=== PATIENT | female | born 1945 | race Caucasian/White ===

== ENCOUNTER 2025-03-26 19:17 | Emergency (ER) | payer OTHER ==
[2025-03-26 19:50] LABS: Absolute Lymphocytes (CBC) 2.4 K/uL (0.7-4.9); Hematocrit 41.5 % (36.0-45.0); Hemoglobin 13.9 g/dL (12.0-15.0); MCH 27.7 pg (27.0-35.0); MCHC 33.5 g/dL (32.0-36.0); MCV 82.7 fL (80-100); MPV 9.1 fL (7.6-11.3); Nucleated RBC Absolute Count 0.0 (0-0); Nucleated Red Blood Cells % 0.1 % (0-0); RBC Red Blood Cell Count 5.02 M/uL (3.86-4.86); White Blood Count 7.60 thou/uL (4.3-10.9)
[2025-03-26] MEDS ORDERED: ONDANSETRON 4 MG/2 ML VIAL ONE (20:02)
[2025-03-26] MEDS ORDERED: NA CHLORIDE 0.9% 500 ML ONE (20:02)
[2025-03-26 20:12] LABS: ALT/SGPT 27 U/L (13-56); AST/SGOT 23 U/L (15-37); Albumin 3.6 g/dL (3.4-5.0); Albumin/Globulin Ratio 1.1 (1.1-1.8); Alkaline Phosphatase 58 U/L (45-117); Anion Gap 11.6 mEq/L (5.0-15.0); BUN Blood Urea Nitrogen 23 mg/dL (7-18); Globulin 3.4 g/dL (2.3-3.5); Glucose Level 109 mg/dL (74-106); Lipase 36 U/L (13-75); Magnesium 2.2 mg/dL (1.6-2.4); NT PRO-BNP 144 pg/mL (<450); Potassium 3.6 mEq/L (3.5-5.1); Troponin High Sensitivity 9.7 pg/mL (<58.9)
[2025-03-26 20:13] LABS: Bilirubin Indirect, Calculated 0.4 mg/dL (0.2-0.8)
[2025-03-26] MEDS ORDERED: DICYCLOMINE HCL 10 MG CAP ONE (20:19)
[2025-03-26] MEDS ORDERED: KETOROLAC 30 MG/ML INJ ONE (20:19)
[2025-03-26 20:22] LABS: PT Prothrombin Time 12.6 SECONDS (10-13.0); Protime INR 1.12
[2025-03-26 20:43] LABS: Influenza A Ag Negative; Influenza B Ag Negative; SARS-CoV-2 Antigen Rapid Res Negative (Negative)
--- NOTE | 2025-03-26 22:12 | RAD REPORT ---
EXAMINATION: CT Abdomen Pelvis W Contrast CLINICAL INDICATION: Female, 79 years old. ABD PAIN TECHNIQUE: CT abdomen and pelvis was performed, after the administration of IV contrast, as per [facility] protocol. Axial, sagittal and coronal reconstructions were obtained. One or more of the following dose reduction techniques were used: Automated exposure control, adjustment of the mA and k V according to patient size, and iterative reconstruction. Unless otherwise specified, incidental findings do not require dedicated imaging follow-up. COMPARISON: No prior exam. FINDINGS: LOWER CHEST: The visualized lung bases are clear. LIVER: Normal in size and contour. No focal lesion. BILIARY SYSTEM: No suspicious abnormalities. SPLEEN: Normal size. No focal lesion. PANCREAS: No mass, ductal dilation, or michele-pancreatic fluid. ADRENALS: Normal; no mass. KIDNEYS: Normal size and contour. No hydronephrosis. URINARY BLADDER: Decompressed limiting evaluation. GASTROINTESTINAL TRACT: Moderate sliding hiatal hernia. No evidence of free air, significant intra-ab dominal free fluid, bowel obstruction or abscess. APPENDIX: Normal appendix. LYMPH NODES: No lymphadenopathy. MUSCULOSKELETAL: No acute or suspicious osseous abnormality. ADDITIONAL FINDINGS: None. IMPRESSION: No acute or concerning abnormalities seen in the abdomen or pelvis.
--- NOTE | 2025-03-26 22:22 | ER ---
Nurse's Notes [facility] Name: Sonal Barnes Age: 79 yrs Sex: Female : 1945 Arrival Date: 03/26/2025 Time: 19:17 Bed 5 Private MD: Diagnosis: Acute viral gastroenteritis, acute nausea vomiting Presentation: 03/26 19:35 Chief complaint: Patient states: has been having dizziness, generalized weakness, and af3 vomiting for 2x days, also c/o headache /10 that started today. Coronavirus screen: At this time, the client does not indicate any symptoms associated with coronavirus-19. Ebola Screen: No symptoms or risks identified at this time. Initial Sepsis Screen: Does the patient meet any 2 criteria? No. Patient's initial sepsis screen is negative. Does the patient have a suspected source of infection? No. Patient's initial sepsis screen is negative. Risk Assessment: Do you want to hurt yourself or someone else? Patient reports no desire to harm self or others. Onset of symptoms was March 24, 2025. 19:35 Method Of Arrival: Wheelchair af3 19:35 Acuity: CHRISTINA 3 af3 Triage Assessment: 19:36 General: Appears in no apparent distress. comfortable, well groomed, well developed, af3 Behavior is calm, cooperative, appropriate for age. Pain: Complains of pain in head Pain currently is 5 out of 10 on a pain scale. Neuro: Level of Consciousness is awake, alert, obeys commands, Oriented to person, place, time, situation, Appropriate for age Reports dizziness, headache weakness generalized. Cardiovascular: Patient's skin is warm and dry. Respiratory: Airway is patent Respiratory effort is even, unlabored, Respiratory pattern is regular, symmetrical. GI: Abdomen is flat, Reports vomiting. Derm: Skin is intact, Skin is pink, warm \T\ dry. normal. Musculoskeletal: Circulation, motion, and sensation intact. Range of motion: intact in all extremities. Historical: - Allergies: 19:36 Aspirin; af3 19:36 Cephalexin; af3 - Home Meds: 19:36 Xarelto oral [Active]; af3 - PMHx: 19:36 Parkinson's disease; Atrial fibrillation; af3 - PSHx: 19:36 hysterectomy; af3 - Immunization history:: Adult Immunizations up to date. - Infectious Disease History:: Denies. - Social history:: Smoking status: Patient reports the use of cigarette tobacco products, denies chronic smoking, but will smoke occasionally, Patient uses alcohol, occasionally. - Family history:: not pertinent. Screenin:41 [facility] ED Fall Risk Assessment (Adult) History of falling in the last 3 months, af3 including since admission No falls in past 3 months (0 pts) Confusion or Disorientation No (0 pts) Intoxicated or Sedated No (0 pts) Impaired Gait No (0 pts) Mobility Assist Device Used No (0 pt) Altered Elimination Yes (1 pt) Score/Fall Risk Level 0 - 2 = Low Risk Oriented to surroundings, Maintained a safe environment, Educated pt \T\ family on fall prevention, incl call for assistance when getting out of bed. Abuse screen: Denies threats or abuse. Denies injuries from another. Nutritional screening: No deficits noted. Tuberculosis screening: No symptoms or risk factors identified. Assessment: 19:41 General: see triage assessment . af3 20:48 Reassessment: Patient appears in no apparent distress at this time. Patient and/or af3 family updated on plan of care and expected duration. Pain level reassessed. Patient is alert, oriented x 3, equal unlabored respirations, skin warm/dry/pink. 21:34 Reassessment: Patient appears in no apparent distress at this time. Patient and/or af3 family updated on plan of care and expected duration. Pain level reassessed. Patient is alert, oriented x 3, equal unlabored respirations, skin warm/dry/pink. 22:46 Reassessment: Patient appears in no apparent distress at this time. Patient and/or af3 family updated on plan of care and expected duration. Pain level reassessed. Patient is alert, oriented x 3, equal unlabored respirations, skin warm/dry/pink. discharge pending fluid completion. Vital Signs: 19:35 BP 176 / 82; Pulse 88; Resp 18; Temp 98.2; Pulse Ox 97% on R/A; Weight 52.62 kg; Height af3 5 ft. 0 in. ; Pain 5/10; 20:47 BP 164 / 76; Pulse 80; Resp 16; Pulse Ox 97% on R/A; af3 21:34 BP 158 / 70; Pulse 71; Resp 18; Pulse Ox 99% on R/A; af3 22:11 BP 156 / 72; Pulse 77; Resp 18 S; Pulse Ox 100% on R/A; ha1 22:46 BP 174 / 71; Pulse 72; Resp 18; Pulse Ox 97% on R/A; af3 19:35 Body Mass Index 22.65 (52.62 kg, 152.4 cm) af3 19:35 Pain Scale: Adult af3 Chelsie Coma Score: 03/27 00:03 Eye Response: spontaneous(4). Motor Response: obeys commands(6). Verbal Response: sp4 oriented(5). Total: 15. ED Course: 03/26 19:21 Patient arrived in ED. gm2 19:30 Chaka Denis MD is Attending Physician. sp4 19:35 Kamini Dutton, BRADY is Primary Nurse. af3 19:36 Triage completed. af3 19:36 Arm band placed on. af3 19:41 Patient has correct armband on for positive identification. Placed in gown. Bed in low af3 position. Provided Education on: plan of care. 19:41 No provider procedures requiring assistance completed. af3 19:55 Basic Metabolic Panel Sent. ha1 19:55 LFT's Sent. ha1 19:56 Magnesium Sent. ha1 19:56 NT PRO-BNP Sent. ha1 19:56 PT-INR Sent. ha1 19:56 Troponin HS Sent. ha1 19:56 Inserted saline lock: 22 gauge in right antecubital area, using aseptic technique. ha1 Blood collected. Flushed with 10 mL NS. 20:34 CT Abd/Pelvis - IV Contrast Only In Process Unspecified. EDMS 22:21 Fernanda Kingston DO is Referral Physician. sp4 23:04 IV discontinued, intact, bleeding controlled, No redness/swelling at site. Pressure af3 dressing applied. Administered Medications: 20:10 Drug: NS 0.9% IV 500 ml 500 ml IV at 1 bolus once; to be given as a bolus over 30 af3 minutes Volume: 500 ml; Route: IV; Rate: 1 bolus; Site: right antecubital; 21:56 Follow up: Response: No adverse reaction; IV Status: Completed infusion; IV Intake: af3 500ml 20:10 Drug: Ondansetron IVP 8 mg IVP once; over 2 minutes Route: IVP; Site: right antecubital;af3 20:43 Follow up: Response: No adverse reaction af3 20:43 Drug: Dicyclomine PO 20 mg PO once Route: PO; af3 21:56 Follow up: Response: No adverse reaction af3 20:43 Drug: Ketorolac IVP 15 mg IVP once Route: IVP; Site: right antecubital; af3 21:56 Follow up: Response: No adverse reaction af3 Medication: 19:41 VIS not applicable for this client. af3 Intake: 21:56 IV: 500ml; Total: 500ml. af3 Outcome: 22:22 Discharge ordered by . sp4 23:03 Discharged to home via wheelchair, af3 23:03 Condition: stable 23:03 Discharge instructions given to patient, Instructed on discharge instructions, follow up and referral plans. medication usage, Demonstrated understanding of instructions, follow-up care, medications, Prescriptions given X 2, 23:04 Patient left the ED. af3 Signatures: Dispatcher [employer] EDMS Mikala Koch RN RN ha1 Chaka Denis MD MD sp4 Mitchell, Ginger 2 Kamini Dutton RN RN af3 Corrections: (The following items were deleted from the chart) 20:47 19:36 Neuro: Level of Consciousness is awake, alert, obeys commands, Oriented to af3 person, place, time, situation, Appropriate for age af3
--- NOTE | 2025-03-26 22:22 | EDPHYS ---
Physician Documentation [facility] Name: Sonal Barnes Age: 79 yrs Sex: Female : 1945 Arrival Date: 03/26/2025 Time: 19:17 Bed 5 Private MD: ED Physician Chaka Denis HPI: 03/26 19:30 This 79 yrs old Female presents to ER via Unassigned with complaints of sp4 Nausea/Vomiting, Dizziness, Weakness, Unstable. 03/27 00:02 Patient is a very pleasant 79-year-old female who presents with acute onset of nausea sp4 vomiting dizziness weakness headache.. Patient reports he has been dry heaving today. She reports the nausea vomiting started 3 days ago.. Historical: - Allergies: 03/26 19:36 Aspirin; af3 19:36 Cephalexin; af3 - Home Meds: 19:36 Xarelto oral [Active]; af3 - PMHx: 19:36 Parkinson's disease; Atrial fibrillation; af3 - PSHx: 19:36 hysterectomy; af3 - Immunization history:: Adult Immunizations up to date. - Infectious Disease History:: Denies. - Social history:: Smoking status: Patient reports the use of cigarette tobacco products, denies chronic smoking, but will smoke occasionally, Patient uses alcohol, occasionally. - Family history:: not pertinent. ROS: 03/27 00:03 Constitutional: Negative for fever, chills, and weight loss, positive for nausea sp4 vomiting dizziness weakness. All other systems are negative, Exam: 00:03 Constitutional: This is a well developed, well nourished patient who is awake, alert, sp4 and in no acute distress. Head/Face: Normocephalic, atraumatic. Eyes: Pupils equal round and reactive to light, extra-ocular motions intact. Lids and lashes normal. Conjunctiva and sclera are not injected. Cornea within normal limits. Periorbital areas with no swelling, redness, or edema. ENT: Nares patent. No nasal discharge, no septal abnormalities noted. Tympanic membranes are normal and external auditory canals are clear. Oropharynx with no redness, swelling, or masses, exudates, or evidence of obstruction, uvula midline. Mucous membranes moist. Neck: Trachea midline, no thyromegaly or masses palpated, and no cervical lymphadenopathy. Supple, full range of motion without nuchal rigidity, or vertebral point tenderness. Chest/axilla: Normal chest wall appearance and motion. Nontender with no deformity. No lesions are appreciated. Cardiovascular: Regular rate and rhythm with a normal S1 and S2. No gallops, murmurs, or rubs. No pulse deficits. Respiratory: Lungs have equal breath sounds bilaterally, clear to auscultation and percussion. No rales, rhonchi or wheezes noted. No increased work of breathing, no retractions or nasal flaring. Abdomen/GI: Soft, with normal bowel sounds. No distension or tympany. No guarding or rebound. No evidence of tenderness throughout. Back: No spinal tenderness. No costovertebral tenderness. Skin: Warm, dry with normal turgor. Normal color with no rashes, no lesions, and no evidence of cellulitis. MS/ Extremity: Pulses equal, no cyanosis. Neurovascular intact. Full, normal range of motion. Neuro: Awake and alert, GCS 15, oriented to person, place, time, and situation. Cranial nerves II-XII grossly intact. Motor strength 5/5 in all extremities. Sensory grossly intact. Psych: Awake, alert, with orientation to person, place and time. Behavior, mood, and affect are within normal limits 01:25 ECG was reviewed by the Attending Physician. EKG at 1940 normal sinus rhythm rate 79 sp4 otherwise unremarkable Vital Signs: 03/26 19:35 BP 176 / 82; Pulse 88; Resp 18; Temp 98.2; Pulse Ox 97% on R/A; Weight 52.62 kg; Height af3 5 ft. 0 in. ; Pain 5/10; 20:47 BP 164 / 76; Pulse 80; Resp 16; Pulse Ox 97% on R/A; af3 21:34 BP 158 / 70; Pulse 71; Resp 18; Pulse Ox 99% on R/A; af3 22:11 BP 156 / 72; Pulse 77; Resp 18 S; Pulse Ox 100% on R/A; ha1 22:46 BP 174 / 71; Pulse 72; Resp 18; Pulse Ox 97% on R/A; af3 19:35 Body Mass Index 22.65 (52.62 kg, 152.4 cm) af3 19:35 Pain Scale: Adult af3 [place] Coma Score: 03/27 00:03 Eye Response: spontaneous(4). Motor Response: obeys commands(6). Verbal Response: sp4 oriented(5). Total: 15. MDM: 03/26 19:31 Medical Screening Exam initiated sp4 03/27 00:10 Differential diagnosis: Nonspecific abd pain, gastritis, diverticulitis, viral sp4 gastroenteritis, gastroenteritis. Data reviewed: vital signs, nurses notes, lab test result(s), radiologic studies, CT scan. Consideration of Admission/Observation Escalation of care including admission/observation considered. ED course: CT abdomen pelvis is negative. 00:10 ED course: Patient stable for discharge home with medications listed below. sp4 03/26 19:31 Order name: Basic Metabolic Panel; Complete Time: 21:08 sp4 03/26 19:31 Order name: CBC with Diff; Complete Time: 20:03 sp4 03/26 19:31 Order name: LFT's; Complete Time: 21:08 sp4 03/26 19:31 Order name: Magnesium; Complete Time: 21:08 sp4 03/26 19:31 Order name: NT PRO-BNP; Complete Time: 21:08 sp4 03/26 19:31 Order name: PT-INR; Complete Time: 21:08 sp4 03/26 19:31 Order name: Troponin HS; Complete Time: 21:08 sp4 03/26 19:31 Order name: Lipase; Complete Time: 21:08 sp4 03/26 20:01 Order name: COVID-19 Ag + Flu A+B Ag; Complete Time: 21:08 4 03/26 20:01 Order name: CT Abd/Pelvis - IV Contrast Only; Complete Time: 22:21 sp4 03/26 19:31 Order name: Cardiac monitoring; Complete Time: 19:55 sp4 03/26 19:31 Order name: EKG - Nurse/Tech; Complete Time: 19:55 sp4 03/26 19:31 Order name: IV Saline Lock; Complete Time: 19:55 sp4 03/26 19:31 Order name: Labs collected and sent; Complete Time: 19:55 sp4 03/26 19:31 Order name: O2 Per Protocol; Complete Time: 19:55 sp4 03/26 19:31 Order name: O2 Sat Monitoring; Complete Time: 19:55 sp4 EC/21 19:48 Rate is 79 beats/min. Rhythm is regular, Normal Sinus Rhythm. QRS Ly[place] is Normal. ND sp4 interval is normal. QRS interval is normal. QT interval is normal. No Q waves. T waves are Normal. No ST changes noted. Clinical impression: No evidence of ischemia. Interpreted by me. Reviewed by me. Administered Medications: 20:10 Drug: NS 0.9% IV 500 ml 500 ml IV at 1 bolus once; to be given as a bolus over 30 af3 minutes Volume: 500 ml; Route: IV; Rate: 1 bolus; Site: right antecubital; 21:56 Follow up: Response: No adverse reaction; IV Status: Completed infusion; IV Intake: af3 500ml 20:10 Drug: Ondansetron IVP 8 mg IVP once; over 2 minutes Route: IVP; Site: right antecubital;af3 20:43 Follow up: Response: No adverse reaction af3 20:43 Drug: Dicyclomine PO 20 mg PO once Route: PO; af3 21:56 Follow up: Response: No adverse reaction af3 20:43 Drug: Ketorolac IVP 15 mg IVP once Route: IVP; Site: right antecubital; af3 21:56 Follow up: Response: No adverse reaction af3 Disposition: 03/27 00:11 Chart complete. sp4 Disposition Summary: 03/26/25 22:22 Discharge Ordered Notes: Location: Home sp4 Problem: new sp4 Symptoms: have improved sp4 Condition: Stable sp4 Diagnosis - Acute viral gastroenteritis, acute nausea vomiting sp4 Followup: sp4 - With: Fernanda Kingston DO - When: 7 - 10 days - Reason: Recheck today's complaints Discharge Instructions: - Discharge Summary Sheet sp4 - Viral Gastroenteritis, Adult, [id number] sp4 - Clear Liquid Diet, Adult, [id number] sp4 Forms: - Patient Portal Instructions sp4 Prescriptions: - meloxicam 7.5 mg Oral tablet - take 1 tablet ORAL route every 12 hours PRN pain; 30 tablet; Refills: 0, sp4 Product Selection Permitted - ondansetron 8 mg Oral Tablet,disintegrating - take 1 tablet ORAL route every 8 hours PRN nausea; 30 tablet; Refills: 0, sp4 Product Selection Permitted Signatures: Dispatcher [employer] Chaka Carias MD MD sp4 Kamini Dutton RN RN af3 Corrections: (The following items were deleted from the chart) 03/26 19:31 19:31 BASIC METABOLIC PANEL+C.LAB.BRZ ordered. EDMS EDMS 19: 19:31 CBC+H.LAB.BRZ ordered. EDMS EDMS 19:31 19:31 HEPATIC FUNCTION+C.LAB.BRZ ordered. EDMS EDMS 19: 19:31 MAGNESIUM+C.LAB.BRZ ordered. EDMS EDMS 19:31 19:31 PROBNP+C.LAB.BRZ ordered. EDMS EDMS 19:31 19:31 PROTIME (+INR)+COAG.LAB.BRZ ordered. EDMS EDMS 19:31 19:31 Troponin High Sensitivity+C.LAB.BRZ ordered. EDMS EDMS 19:31 19:31 LIPASE+C.LAB.BRZ ordered. EDMS EDMS 20:02 20:02 COVID-19 Ag + Flu A+B Ag+I.LAB.BRZ ordered. EDMS EDMS 20:02 20:02 Abdomen Pelvis W Con+CT.RAD.BRZ ordered. EDMS EDMS
[2025-03-27 09:09] VITALS: TEMP 98.2
[2025-03-27 09:14] VITALS: BP 174/71; O2SAT 97
== END 2025-03-26 23:04 | disposition home or self-care (01) ==
LOC: ER 19:17
DX: A08.4 Viral intestinal infection, unspecified (principal); R53.1 Weakness; F17.210 Nicotine dependence, cigarettes, uncomplicated; Z11.52 Encounter for screening for COVID-19; I48.91 Unspecified atrial fibrillation; Z79.01 Long term (current) use of anticoagulants
CPT/HCPCS: 93005; 85025; 80048; 36415; 83735; 85610; 80076; 84484; 83690; 83880; 74177; 87428; Q9967; J1885; J2405; J7040; 96361; 96374; 96375; 99284